=== PATIENT | female | born 1980 | race Caucasian/White ===

== ENCOUNTER 2017-04-09 13:45 | Inpatient (IN) | payer BC ==
[~2017-04-09] VITALS: Ht 157.5 cm; Wt 79.4 kg
[2017-04-09] VITALS (24 sets, daily range): BP systolic 105–150; BP diastolic 53–81
[~2017-04-09 13:45] MED LIST: CLARITIN10 MG PO; GLUCOPHAGE500 MG PO; Levothroid,Synthroid PO; MOTRIN800 MG PO; Motrin PO; PREFERA-OB P1 TABLET PO; PROCARDIA20 MG PO; PROMETRIUM; PROZAC20 MG PO; Percocet 5/325,Endoc PO; ROXICET 5-3251 EACH PO; SYNTHROID175 MCG PO; VITAMIN D
[2017-04-09] MEDS ORDERED: LEVOTHYROXINE112 MCG PO ×2 (14:15→14:18)
[2017-04-09] MEDS ORDERED: SYNTHROID112 MCG PO (14:17)
[2017-04-09] MEDS ORDERED: PRENATAL TABLE1 EAC3 PO (14:21)
[2017-04-09] MEDS ORDERED: VITAMIN D5000 UNI1 PO (14:23)
[2017-04-09 15:13] LABS: EOSINOPHIL (%) 3.3 % (0-5); EOSINOPHIL COUNT 0.4 K/uL (0-0.3); HEMATOCRIT 34.2 % (36.0-46.0); IMMATURE GRANULOCYTE (%) 0.4 % (0.0-0.7); IMMATURE GRANULOCYTE COUNT 0.1 K/uL; INSTRUMENT ABS NEUTROPHIL CT 8.9 K/uL; LYMPHOCYTE COUNT 1.6 K/uL (1.0-2.8); MCH 32.4 PG (29.0-34.0); MCHC 35.4 G/DL (30.0-36.0); MCV 91.7 FL (83-99); MEAN PLAT.VOLUME 11.5 uM^3 (9.5-12.4); MONOCYTE COUNT 0.8 K/uL (0-0.8); NEUTROPHIL (%) 75.4 % (45-76); NEUTROPHIL COUNT 8.9 K/uL (1.8-6.4); PLATELET COUNT 163 K/uL (156-360); RBC DIS.WIDTH-CV 13.4 % (11.8-14.6); RBC DIS.WIDTH-SD 44.5 % (39-53); RED BLOOD COUNT 3.73 M/uL (3.80-5.20); WHITE BLOOD COUNT 11.8 K/uL (4.1-10.2)
[2017-04-09] MEDS ORDERED: IBUPROFEN800 MG PO (20:46)
[2017-04-10 07:22] VITALS: BP 112/59
[2017-04-10 12:07] LABS: POINT-OF-CARE METER ID UU13113692
[2017-04-10 15:07] VITALS: BP 124/71
[2017-04-11 07:41] VITALS: BP 126/69
[2017-04-11 15:14] VITALS: BP 126/70
== END 2017-04-11 16:00 | disposition home or self-care (01) | DRG 775 ==
LOC: LDRP-OP 13:45 → 2WEST 13:46 → LDRP-OP 05-28 16:31
PROVIDERS: Advanced Practice Midwife; Obstetrics & Gynecology
PROC: 10E0XZZ Delivery of Products of Conception, External Approach (ICD-10-PCS; principal; 2017-04-09)
PROC: 10907ZC Drainage of Amniotic Fluid, Therapeutic from Products of Conception, Via Natural or Artificial Opening (ICD-10-PCS; 2017-04-09)
PROC: 3E0S3BZ Introduction of Anesthetic Agent into Epidural Space, Percutaneous Approach (ICD-10-PCS; 2017-04-09)
DX: O99.824 Streptococcus B carrier state complicating childbirth (principal); Z37.0 Single live birth; Z3A.37 37 weeks gestation of pregnancy; O99.344 Other mental disorders complicating childbirth; O99.284 Endocrine, nutritional and metabolic diseases complicating childbirth; F41.9 Anxiety disorder, unspecified; O34.211 Maternal care for low transverse scar from previous cesarean delivery; E28.2 Polycystic ovarian syndrome; E06.3 Autoimmune thyroiditis
CPT/HCPCS: 82948; 85025; 86850; 86900; 86901; C1755; J0290; J3010; J7050; J7120